=== PATIENT | male | born 1955 | race Caucasian/White ===

== ENCOUNTER 2020-11-12 11:41 | Emergency (ER) | payer OTHER ==
[~2020-11-12] VITALS: Ht 177.8 cm; Wt 68.0 kg
[~2020-11-12 11:41] MED LIST: ACCUNEB SO1.25 MG/1; PENICILLIN VK500 M1 PO; SUDAFED 12 HOU120 MG; TRAMADOL 50 MG50 MG PO; ZYRTEC10 MG
[2020-11-12] MEDS ORDERED: CEPHALEXIN500 MG PO (12:36)
[2020-11-12 13:01] VITALS: BP 168/92
== END 2020-11-12 13:03 | disposition home or self-care (01) ==
LOC: M.ERS 11:41
DX: S60.450A Superficial foreign body of right index finger, initial encounter (principal); J44.9 Chronic obstructive pulmonary disease, unspecified; F17.210 Nicotine dependence, cigarettes, uncomplicated; W22.8XXA Striking against or struck by other objects, initial encounter; Y93.89 Activity, other specified; Y92.89 Other specified places as the place of occurrence of the external cause; Y99.8 Other external cause status